=== PATIENT | male | born 1965 | race Caucasian/White ===

== ENCOUNTER 2024-12-18 07:29 | Day surgery (SDC) | payer MEDICARE, SELFPAY ==
[2024-12-16 15:34] VITALS: BMI 31.4
[2024-12-18] MEDS: LACTATED RINGERS 1000ML 1,000 ML 50 ML IV (08:00)
[2024-12-18 08:01] VITALS: BP 142/77; PULSE 65; RESP 18; TEMP 36.6; O2SAT 98
--- NOTE | 2024-12-18 08:22 | P.PNANES_ITS ---
[facility] Disclaimer: The information contained in this section may have been updated after the patient was seen, as this information can be updated by other users. Medical History Hypertension Surgical History History of nasal surgery Family History Other No significant family history Social History Smoking Status: Never smoker alcohol intake: never substance use type: denies use current occupational status: other Travel in the last 8 weeks: None [facility] Anesthesia Checklist Patient Identification Patient Identification: Arm Band Structural Data Admitted From: Home Planned Operative Procedure/s: Colonoscopy Consent for Planned Operative Procedure(s) Verified: Yes Verified Documents: Surgical Consent and History and Physical NPO Status Verified Time NPO: 00:00 Additional verifications Anesthesia Reactions: No Airway Assessment Mallampati Score:: Class II C-Spine Mobility Assessed: Yes TMJ Mobility Assessed: Yes Dentition: Good Dentition Neurological Assessment Level of Consciousness: Awake, Alert and Appropriate Anesthesia Plan Anesthesia Risk discussed: Yes Anesthesia Plan: Verified ASA Class: II Anesthesia Type: MAC
--- NOTE | 2024-12-18 08:50 | EXP.GEN.HP ---
HPI HPI HPI: Patient is a 59-year-old male who presents for colonoscopy. He states that he had a colonoscopy likely greater than 10 years ago in [facility]. He states that he was told he had some polyps but they were not removed. No family history of colon cancer. He does describe symptoms likely consistent with hemorrhoidal prolapse. [facility] Disclaimer: The information contained in this section may have been updated after the patient was seen, as this information can be updated by other users. Medical History (Updated 12/18/24 @ 08:51 by Rayshawn Leger MD) Hypertension Surgical History History of nasal surgery Family History No significant family history Social History (Updated 12/18/24 @ 08:23 by Berny Romero CRNA) Smoking Status: Never smoker alcohol intake: never substance use type: denies use current occupational status: other Travel in the last 8 weeks: None Have you lived/traveled outside [place] in past 30 days?: No Contact w/someone who lives/traveled outside [place] past 30 days?: No Exposure to someone with infectious disease in past 14 days?: No Do you have a fever (greater than 100.4 F or 38 C)?: No Have you tested positive for COVID-19: No Exposed to someone with COVID-19 in past 14 days?: No Do you have a sore throat?: No Do you have a cough?: No Do you have any weakness?: No Do you have any diarrhea?: No Are you experiencing any unusual bleeding?: No Do you have any muscle aches/pain?: No Do you have any abdominal pain?: No Are you experiencing loss of taste or smell?: No Meds Home Medications and Allergies Home Medications ?Medication ?Instructions ?Recorded ?Confirmed ?Type metoprolol succinate 25 mg 50 mg PO DAILY 12/16/24 12/18/24 History tablet,extended release 24 hr lisinopril 10 mg tablet 10 mg PO DAILY 12/18/24 12/18/24 History New Prescriptions to Start Prescriptions: Allergies Allergy/AdvReac Type Severity Reaction Status Date / Time No Known Allergies Allergy Verified 12/01/24 10:28 Exam Data for Last 24 hours Vital signs and Labs for Last 24 Hours: Temp Pulse Resp BP Pulse Ox O2 Del Method 97.9 F 65 18 142/77 H 98 Room Air 12/18/24 08:01 12/18/24 08:01 12/18/24 08:01 12/18/24 08:01 12/18/24 08:01 12/18/24 08:01 I & O for Last 24 hours: Intake & Output 12/15/24 12/16/24 12/17/24 12/18/24 11:59 11:59 11:59 11:59 Weight 225 lb Constitutional Constitutional: no acute distress *Routine HEENT Exam Head: Present normocephalic Eye: Present EOMI and PERRL ENT: Present mucous membranes moist *Routine Neck Exam Neck: Present supple; Absent lymphadenopathy *Routine Respiratory Exam Respiratory: Present CTA bilaterally *Routine Cardiovascular Exam Cardiovascular: Present RRR *Routine Abdominal Exam Abdominal: Present soft and normoactive bowel sounds; Absent tenderness *Routine Rectal Exam Rectal:: deferred *Routine Genitalia Exam Genitalia:: deferred *Routine Extremities Exam Extremities: Absent cyanosis, clubbing or edema *Routine Skin Exam Skin: Present warm; Absent rash *Routine Neurological Exam Neurological: Present alert and oriented X3 Assessment and Plan *Assessment and plan (1) Encounter for screening colonoscopy: Status: Acute Category: Medical Code(s): Z12.11 - Encounter for screening for malignant neoplasm of colon Plan Proceed with colonoscopy
[2024-12-18 08:57] VITALS: O2SAT 98
--- NOTE | 2024-12-18 09:35 | P.PCN_ITS ---
Procedure: Date: 12/18/24 Patient Date of :: 1965 Procedure Performed:: Total colonoscopy to terminal ileum with multiple polypectomy using snare Indications:: Patient is a 59-year-old male. He had previously undergone colonoscopy about 10 years ago in [facility]. He states that he did have possible polyps at that time but they were not removed. He has no family history of colon cancer. He has had some symptoms of hemorrhoid prolapse. Performing Provider:: Rayshawn Leger MD Referring Provider:: Giorgi Thompson MD Sedation:: MAC sedation Procedure:: Patient history was obtained and appropriate physical examination was performed. Patient's medications and allergies were reviewed. Informed consent was obtained after explaining the benefits, alternatives, and risks of the procedure including, but not limited to, bleeding, perforation, missed lesions, and adverse reaction to anesthesia medications. Patient was transported to endoscopy procedure room. Patient was connected to monitoring devices. Throughout the procedure the patient's blood pressure, pulse, and oxygen saturations were monitored continuously. Patient identification and planned procedure were verified by the staff. Patient was positioned in lateral decubitus position. Digital anorectal exam was performed. Variable stiffness Olympus colonoscope was inserted and advanced under direct visualization to the cecum. Adequacy of the colonic preparation was noted. The colonoscope was advanced a short distance into the terminal ileum. The colonoscope was then slowly withdrawn while carefully examining the color, texture, anatomy, and integrity of the mucosoa circumferentially. Within the rectum retroflexion was performed. Colonoscope was then withdrawn. Impression: Colonic preparation was good. As the colonoscope was withdrawn in the distal transverse colon there was a small adenomatous appearing polyp removed with cold snare. It was difficult to determine if it was definitively retrieved. In the descending colon there was a tiny diminutive adenomatous appearing polyp removed with cold snare. There were a few sigmoid diverticuli. In the rectosigmoid region there was a tiny diminutive possible adenomatous polyp removed with cold snare. Retroflexion within the rectum revealed some hemorrhoidal prolapse. He also had some rectal varices. This is likely not amenable to intervention at this time. Findings:: Polyps as noted Rare sigmoid diverticula Rectal varices and hemorrhoidal prolapse Recommendations:: Repeat colonoscopy pending pathology. Possibly 3 years Complications:: None immediate Estimated blood obtained (mL): 2 Colonoscopy Component Colonoscopy Component Was a colonoscopy performed during today's procedure?: Yes Recommended follow up colonoscopy of at least 10 years?: No If no, follow up colonoscopy recommended in ___ years?: See above Reason for not recommending >/= 10 yr follow-up interval?: See above
[2024-12-18 09:37] VITALS: BP 106/64; PULSE 68; RESP 16; TEMP 36.9; O2SAT 93
[2024-12-18 09:47] VITALS: BP 103/66; PULSE 62; RESP 16; TEMP 36.9; O2SAT 96
[2024-12-18 09:57] VITALS: BP 131/77; PULSE 65; RESP 16; TEMP 36.9; O2SAT 97
[2024-12-18 10:07] VITALS: BP 138/79; PULSE 69; RESP 16; TEMP 36.9; O2SAT 99
== END 2024-12-18 10:07 | disposition home or self-care (01) ==
PROVIDERS: PCP Family Medicine; Visit Provider Surgery
PROC: 0DJD8ZZ Inspection of Lower Intestinal Tract, Via Natural or Artificial Opening Endoscopic (ICD-10-PCS; CPT 45385; principal; 2024-12-18 08:30)
DX: Z12.11 Encounter for screening for malignant neoplasm of colon (principal); D12.7 Benign neoplasm of rectosigmoid junction; D12.4 Benign neoplasm of descending colon; D12.3 Benign neoplasm of transverse colon; K57.30 Diverticulosis of large intestine without perforation or abscess without bleeding; K64.9 Unspecified hemorrhoids
CPT/HCPCS: 45385; J7120